=== PATIENT | male | born 1985 | race Caucasian/White ===

== ENCOUNTER 2017-12-23 15:46 | Emergency (ER) | payer OTHER ==
[~2017-12-23] VITALS: Ht 172.7 cm; Wt 85.0 kg
[2017-12-23 15:55] VITALS: BP 149/102
[2017-12-23] MEDS ORDERED: LIDOCAINE-MPF 1%, 5ML INFIL ONE (16:00)
[2017-12-23] MEDS ORDERED: LIDOCAINE-MPF 2%, 2ML ONE ×2 (16:22→16:32)
[2017-12-23] MEDS ORDERED: BACITRACIN ZINC OINT 500U/GM, 0.9 GM ONE (17:33)
== END 2017-12-23 17:49 | disposition home or self-care (01) ==
LOC: ED 16:52
DX: S51.012A Laceration without foreign body of left elbow, initial encounter (principal); F17.210 Nicotine dependence, cigarettes, uncomplicated; W25.XXXA Contact with sharp glass, initial encounter; Y93.89 Activity, other specified; Y92.89 Other specified places as the place of occurrence of the external cause; Y99.0 Civilian activity done for income or pay
CPT/HCPCS: 12002; 99283

== ENCOUNTER 2020-09-04 03:26 | Emergency (ER) | payer OTHER ==
[~2020-09-04] VITALS: Ht 172.7 cm; Wt 88.8 kg
[2020-09-04 03:29] VITALS: BP 123/87
--- NOTE | 2020-09-04 04:00 | NUR ---
XRAY AT BEDSIDE FOR STUDY. PT TOLERATED WELL.
[2020-09-04] MEDS ORDERED: KETOROLAC 30 MG/1 ML IM ONE (05:00)
[2020-09-04] MEDS ORDERED: KETOROLAC 30 MG/1 ML ONE (05:04)
== END 2020-09-04 05:24 | disposition home or self-care (01) ==
LOC: ED 03:44
DX: M79.672 Pain in left foot (principal); F17.210 Nicotine dependence, cigarettes, uncomplicated; X58.XXXA Exposure to other specified factors, initial encounter; Y93.89 Activity, other specified; Y92.89 Other specified places as the place of occurrence of the external cause; Y99.8 Other external cause status
CPT/HCPCS: 73630; 96372; 99283; 99406; J1885